=== PATIENT | female | born 1960 | race Caucasian/White ===

== ENCOUNTER → 2017-03-14 | Outpatient (CLI) | payer MEDICAID | LOC: CIMAGING 13:50 | PROVIDERS: ATTEND Family Medicine | DX: Z12.31 Encounter for screening mammogram for malignant neoplasm of breast (principal); Z80.3 Family history of malignant neoplasm of breast | CPT/HCPCS: G0202 ==

== ENCOUNTER → 2017-04-13 | Outpatient (CLI) | payer MEDICAID | LOC: CIMAGING 15:10 | PROVIDERS: ATTEND Family Medicine | DX: M40.204 Unspecified kyphosis, thoracic region (principal); M25.78 Osteophyte, vertebrae | CPT/HCPCS: 72070-PO; 80053-PO; 85025-PO ==

== ENCOUNTER 2017-10-27 07:51 | Emergency (ER) | payer MEDICAID ==
[2017-10-27 07:58] VITALS: RESP 20; TEMP 97.7; O2SAT 97
--- NOTE | 2017-10-27 08:13 | EDPHY ---
H & P Time Seen by Provider: 10/27/17 07:56 HPI/ROS: CHIEF COMPLAINT: Swelling behind right knee History by patient HISTORY OF PRESENT ILLNESS: 49-year-old otherwise healthy woman presents complaining of swollen lump behind her right knee. Patient states that she got on the treadmill this morning and felt a fullness in the back of her knee, which is uncomfortable but not painful. She said she felt something in there slightly earlier this morning but had bothered her much until she started walking on the treadmill. She denies any trauma to the knee. She has never had him that this before. She did take a 4 hr plane flight 2 days ago. She did notice anything at that time. She denies any redness or warmth. She denies any fever. Patient has no prior history of DVT and no family history of DVT. She is not on estrogen. She does not smoke. REVIEW OF SYSTEMS: As in HPI, and all other systems reviewed and are negative Smoking Status: Never smoked Physical Exam: General Appearance: Alert and no distress. Head: Normocephalic, atraumatic Eyes: Pupils equal and round no injection. Extraocular movements are intact. Musculoskeletal: Neck is supple and nontender. Extremities: Right knee full range of motion without deformity. No tenderness. No anterior swelling. Positive discrete mildly tender golf ball size swelling in popliteal fossa. DP and PT pulses 2+ and equal bilaterally. Distal sensation intact. No calf tenderness or swelling. Skin: No rashes or lesions except as described above. Constitutional: Initial Vital Signs Temperature (C) 36.5 C 10/27/17 07:53 Heart Rate 84 10/27/17 07:53 Respiratory Rate 20 10/27/17 07:53 Blood Pressure 119/77 10/27/17 07:53 O2 Sat (%) 97 10/27/17 07:53 Allergies/Adverse Reactions: Penicillins Allergy (Verified 10/27/17 07:58) Hives Home Medications: Medication Instructions Recorded Acyclovir 10/27/17 Gabapentin 10/27/17 Nabumetone 10/27/17 MDM/Departure - MDM Imaging Results: Imaging Impressions Extremity Venous Study 10/27/17 08:09 Impression: 1. No evidence of deep vein thrombosis. 2. Tate's cyst. Findings discussed with Yue Hillman MD 10/27/2017 at 9:03. Knee X-Ray 10/27/17 08:28 Impression: 1. Possible right Tate's cyst for which additional imaging with ultrasound or MRI is suggested. 2. 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 Imaging: Discussed imaging studies w/ inbound call center agent Radiologist ED Course/Re-evaluation: 57-year-old woman presents with swelling behind her right knee. Exam is consistent with Tate's cyst versus DVT. X-ray and ultrasound were obtained. There is no obvious underlying knee pathology to explain the Tate cyst. Ultrasound showed no evidence of DVT was consistent with a Tate cyst. We discussed home care and conservative measures and I am recommending follow up with her PCP or Orthopedics. Patient understands and is agreeable to this plan. - Depart Disposition: Home, Routine, Self-Care Clinical Impression: Tate's cyst, unruptured Qualifiers: Laterality: right Qualified Code(s): M71.21 - Synovial cyst of popliteal space [Tate], right knee Condition: Good Instructions: Bakers Cyst (ED) Additional Instructions: You were seen by Dr. Yue Hillman today. Your x-ray is unremarkable. Ultrasound showed a Tate cyst in her knee. I recommend trial ibuprofen and follow up with her primary care physician or orthopedist for consideration of steroid injection. Return for any worsening or new concerns. Referrals: Laura Romero MD [Primary Care Provider] - As per Instructions
[2017-10-27 09:14] VITALS: BP 138/74; PULSE 68
== END 2017-10-27 09:13 | disposition home or self-care (01) ==
LOC: CED 07:51
DX: M71.21 Synovial cyst of popliteal space [Baker], right knee (principal)
CPT/HCPCS: 73562-PO; 93971-PO

== ENCOUNTER → 2017-11-29 | Outpatient (CLI) | payer MEDICAID | LOC: CLAB 10:21 | PROVIDERS: ATTEND Family Medicine | DX: M50.322 Other cervical disc degeneration at C5-C6 level (principal); M50.323 Other cervical disc degeneration at C6-C7 level; M50.33 Other cervical disc degeneration, cervicothoracic region; M89.38 Hypertrophy of bone, other site | CPT/HCPCS: 72040-PO ==

== ENCOUNTER → 2019-02-21 | Outpatient (CLI) | payer OTHER | LOC: FIMAGING 10:21 ==